=== PATIENT | male | born 1965 | race Caucasian/White ===

== ENCOUNTER 2017-06-26 21:07 | Emergency (ER) | payer OTHER ==
[~2017-06-26] VITALS: Ht 177.8 cm; Wt 86.2 kg
[~2017-06-26 21:07] MED LIST: ALBUTEROL2.5 MG/3 M IH; ATROVENT 00.5 MG/2.5 IH; Asa-EC 81MG TAB PO; FLUCONAZOLE100 MG PO; FUERA DE FORMULARIO OP; Flonase 50MCG NS; MEDROLPACK PO; PULMICORT1 MG/2 ML IH; SINGULAIR10 MG PO; TESSALON PERLE100 M1 PO; ULTRACET PO; ZOCOR PO
[2017-06-27] MEDS ORDERED: PEPCID40 MG PO (04:32)
[2017-06-27] MEDS ORDERED: ZOFRAN4 MG PO (04:32)
[2017-06-27] MEDS ORDERED: CEFUROXIME500 MG PO (04:39)
[2017-06-27] MEDS ORDERED: KETO10TA2 PO (04:39)
== END 2017-06-27 04:33 | disposition home or self-care (01) ==
LOC: ER 21:07
DX: R31.9 Hematuria, unspecified (principal)

== ENCOUNTER 2017-11-26 05:11 | Inpatient (IN) | payer OTHER ==
[~2017-11-26] VITALS: Ht 182.9 cm; Wt 90.7 kg
[~2017-11-26 05:11] MED LIST changes: +CEFUROXIME500 MG PO; +KETO10TA2 PO; +PEPCID40 MG PO; +ZOFRAN4 MG PO
[2017-12-03] MEDS ORDERED: PROSCAR5 MG PO (16:19)
[2017-12-03] MEDS ORDERED: TAMSULOSIN HCL0.4 MG PO (16:19)
== END 2017-12-03 18:16 | disposition home or self-care (01) | DRG 202 ==
LOC: ER 05:11 → SEC-K 17:08 → MEDI 17:08 → MEDJ 11-28 22:49
PROC: 3E0F7GC Introduction of Other Therapeutic Substance into Respiratory Tract, Via Natural or Artificial Opening (ICD-10-PCS; principal; 2017-11-26)
PROC: 4A033R1 Measurement of Arterial Saturation, Peripheral, Percutaneous Approach (ICD-10-PCS; 2017-11-26)
PROC: BB24ZZZ Computerized Tomography (CT Scan) of Bilateral Lungs (ICD-10-PCS; 2017-11-28)
PROC: 8E0ZXY6 Isolation (ICD-10-PCS; 2017-11-28)
PROC: BB24Y0Z Computerized Tomography (CT Scan) of Bilateral Lungs using Other Contrast, Unenhanced and Enhanced (ICD-10-PCS; 2017-11-30)
DX: J45.41 Moderate persistent asthma with (acute) exacerbation (principal); J44.1 Chronic obstructive pulmonary disease with (acute) exacerbation; N39.0 Urinary tract infection, site not specified; R09.02 Hypoxemia; Z86.73 Personal history of transient ischemic attack (TIA), and cerebral infarction without residual deficits; R31.0 Gross hematuria; B96.0 Mycoplasma pneumoniae [M. pneumoniae] as the cause of diseases classified elsewhere; B95.7 Other staphylococcus as the cause of diseases classified elsewhere

== ENCOUNTER 2018-11-18 11:35 | Emergency (ER) | payer OTHER ==
[~2018-11-18] VITALS: Ht 180.3 cm; Wt 103.0 kg
[~2018-11-18 11:35] MED LIST changes: +PROSCAR5 MG PO; +TAMSULOSIN HCL0.4 MG PO
[2018-11-18] MEDS ORDERED: CANNABIS (12:00)
== END 2018-11-18 18:17 | disposition home or self-care (01) ==
LOC: ER 11:35
DX: M54.5 Low back pain (principal)

== ENCOUNTER 2021-08-19 10:40 | Emergency (ER) | payer OTHER ==
[~2021-08-19] VITALS: Ht 180.3 cm; Wt 104.3 kg
[~2021-08-19 10:40] MED LIST changes: +CANNABIS
== END 2021-08-19 13:43 | disposition home or self-care (01) ==
LOC: ER 10:40
DX: J44.1 Chronic obstructive pulmonary disease with (acute) exacerbation (principal); Z87.891 Personal history of nicotine dependence; Z20.822 Contact with and (suspected) exposure to COVID-19

== ENCOUNTER 2022-09-20 11:45 | Inpatient (IN) | payer OTHER ==
[~2022-09-20] VITALS: Ht 180.3 cm; Wt 103.0 kg
[2022-09-20] MEDS ORDERED: TRELE PO (12:36)
[2022-09-20] MEDS ORDERED: TAMS0.4C PO (12:37)
[2022-09-20] MEDS ORDERED: ZESTRIL5 MG PO (12:37)
[2022-09-26] MEDS ORDERED: MAXIMUM D3325 MCG (08:24)
[2022-09-26] MEDS ORDERED: TRELEGY ELLIPT1 EACH (08:24)
[2022-09-26] MEDS ORDERED: FINASTERIDE5 MG (08:24)
== END 2022-09-28 13:42 | DRG 470 ==
LOC: SURH 09-26 06:00 → O/R 09-26 06:00 → SURG 09-26 10:15 → SURH 09-26 15:04
PROVIDERS: ADMIT Orthopaedic Surgery; ATTEND Orthopaedic Surgery
PROC: 0SRC0JZ Replacement of Right Knee Joint with Synthetic Substitute, Open Approach (ICD-10-PCS; principal; 2022-09-26 10:15)
DX: M17.11 Unilateral primary osteoarthritis, right knee (principal); M85.861 Other specified disorders of bone density and structure, right lower leg